=== PATIENT | male | born 1970 | race Hispanic/Latino ===

== ENCOUNTER 2022-01-13 17:33 | Emergency (ER) | payer OTHER ==
[2022-01-13 17:54] LABS: BASOPHILS % (AUTO) 0.6 % (0.0-5.0); EOSINOPHILS % (AUTO) 0.6 % (0.0-8.0); HEMATOCRIT 44.7 % (42-54); LYMPHOCYTES % (AUTO) 35.2 % (21.0-51.0); MEAN CORPUSCULAR HEMOGLOBIN 30.9 pg (27.0-33.0); MEAN CORPUSCULAR HGB CONC 33.3 g/dL (32.0-36.0); MEAN CORPUSCULAR VOLUME 92.7 fL (79-99); MONOCYTES % (AUTO) 5.2 % (3.0-13.0); NEUTROPHILS % (AUTO) 57.6 % (40.0-77.0); PLATELET COUNT (AUTO) 366 K/uL (130-400); RED BLOOD CELL COUNT(AUTO) 4.82 MIL/uL (4.50-6.20); RED CELL DISTRIBUTION WIDTH 13.4 % (11.0-15.5); WHITE BLOOD COUNT (AUTO) 7.9 K/uL (4.8-10.8)
[2022-01-13] MEDS ORDERED: 0.9%NACL 1000ML 1,000 ML IV ONE (18:00)
[2022-01-13 18:04] LABS: CARBON DIOXIDE 22 mmol/L (21-32); CHLORIDE 103 mmol/L (101-111); CREATININE 1.2 mg/dL (0.5-1.5); GLOMERULAR FILTR. RATE CALC 68 mL/min (>60); GLUCOSE,RANDOM 301 mg/dL (70-105); POTASSIUM 3.9 mmol/L (3.5-5.1); SODIUM SERUM 142 mmol/L (136-145); UREA NITROGEN, BLOOD 12 mg/dL (7-18)
[2022-01-13 18:10] LABS: ACETAMINOPHEN 2 mcg/mL (10-29); ALANINE AMINOTRANSFERASE 62 U/L (12-78); ALBUMIN 3.9 g/dL (3.5-5.0); ALCOHOL, BLOOD 109 mg/dL (0-10); ASPARTATE AMINOTRANSFERASE 69 U/L (10-37); CREATINE KINASE, TOTAL 221 U/L (21-232); TOTAL PROTEIN, SERUM 7.5 g/dL (6.0-8.3)
[2022-01-13 18:11] LABS: APPEARANCE,URINE CLEAR (CLEAR); BILIRUBIN,URINE NEGATIVE (NEGATIVE); COLOR,URINE COLORLESS (YELLOW); GLUCOSE, URINE (UA) >=1000 mg/dL (NEGATIVE); KETONES,URINE NEGATIVE (NEGATIVE); LEUKOCYTE ESTERASE ,URINE NEGATIVE Leu/uL (NEGATIVE); NITRATE,URINE NEGATIVE (NEGATIVE); OCCULT BLOOD,URINE NEGATIVE (NEGATIVE); PH,URINE 6.5 (5.0-8.0); PROTEIN,URINE 30 mg/dL (NEGATIVE); UROBILINOGEN,URINE 0.2 mg/dL (0.2-1.0)
[2022-01-13 18:12] LABS: SALICYLATE < 2.8 mg/dL (2.8-20.0)
[2022-01-13 18:23] LABS: BACTERIA,URINE RARE /HPF (None Seen); MUCUS,URINE RARE LPF (None Seen); RBC,URINE 0-1 /HPF (0-1); WBC,URINE 0-1 /HPF (0-1)
[2022-01-13 18:42] LABS: AMPHET/METH SCREEN,URINE NEGATIVE (NEGATIVE); BARBITURATE SCREEN, URINE NEGATIVE (NEGATIVE); BENZODIAZEPINES SCREEN,URINE NEGATIVE (NEGATIVE); CANNABINOID SCREEN,URINE NEGATIVE (NEGATIVE); COCAINE SCREEN,URINE NEGATIVE (NEGATIVE); OPIATE SCREEN,URINE NEGATIVE (NEGATIVE); PHENCYCLIDINE SCREEN,URINE NEGATIVE (NEGATIVE)
[2022-01-13] MEDS ORDERED: ONDANSETRON 4MG INJ IVP ONE (20:00)
[2022-01-13 21:34] VITALS: BP 152/78
== END 2022-01-13 22:34 | disposition home or self-care (01) ==
LOC: EDH 17:33
DX: T40.2X1A Poisoning by other opioids, accidental (unintentional), initial encounter (principal)
CPT/HCPCS: 99285; 96374; 71250; 71045; 96361; 82550; 80053; 80305; 85025; 36415; 93005; 81001; G0481; J7030; J2405